=== PATIENT | male | born 1980 | race Two or more races ===

== ENCOUNTER 2022-06-14 10:03 | Emergency (ER) | payer OTHER ==
[2022-06-14 10:44] LABS: #Eosinphils 0.1 10x3/uL (0.0-0.5); #Monocytes 0.6 10x3/uL (0.0-1.1); #Neutrophils 6.6 10x3/uL (1.5-8.4); %Basophils 0.3 % (0.0-2.0); %Eosinophils 1.3 % (0.0-6.0); %Lymphocytes 23.2 % (18.0-47.0); %Neutrophils 66.6 % (40.0-75.0); Hemoglobin 7.7 g/dL (13.5-17.5); Mean Corpuscular HGB CONC 33.8 g/dL (32.0-36.0); Mean Corpuscular Volume 91.9 fl (81.2-95.1); Platelet Count 182 10x3/uL (150-450); RBC Distribution Width 12.9 % (11.5-14.5); Red Blood Cell (RBC) Count 2.48 10x6/uL (4.32-5.72); White Blood Cell (WBC) Count 9.9 10x3/uL (3.5-10.5)
[2022-06-14 10:54] LABS: INR-International Normal Ratio 0.9; Prothrombin Time 9.8 sec (9.5-12.1)
[2022-06-14 11:04] LABS: PTT 21.2 sec (22.0-33.0)
[2022-06-14 11:24] LABS: ALT (SGPT) 59 U/L (8-55); AST (SGOT) 27 U/L (5-34); Alkaline Phosphatase 50 U/L (40-110); Anion Gap 13 mmol/L (10-20); BUN (Urea Nitrogen) 12 mg/dL (8.9-20.6); Bilirubin, Total 0.6 mg/dL (0.2-1.2); Calc. Creatinine Clearance 0 mL/min (70-130); Calcium 8.3 mg/dL (7.8-10.44); Carbon Dioxide 24 mmol/L (22-29); Chloride 105 mmol/L (98-107); Estimated GFR 115; Globulin 2.2 g/dL (2.4-3.5); Glucose 134 mg/dL (70-105); Potassium 3.8 mmol/L (3.5-5.1); Protein, Total 6.2 g/dL (6.0-8.3); Sodium 138 mmol/L (136-145)
[2022-06-14] MEDS ORDERED: Iopamidol 300 61% 100 ML VIAL FS ONE (12:59)
[2022-06-14 13:37] LABS: Iron 95 ug/dL (65-175); Iron Binding Capacity, Total 318 mcg/dL (261-462)
== END 2022-06-14 12:28 | disposition home or self-care (01) ==
LOC: CSHERS 10:03
DX: D64.9 Anemia, unspecified (principal); K62.5 Hemorrhage of anus and rectum; Z87.891 Personal history of nicotine dependence
CPT/HCPCS: 74177; 80053; 82274; 82728; 83540; 83550; 85025; 85046; 85610; 85730; 86850; 86900; 86901; 93005; Q9967